=== PATIENT | male | born 2000 | race Hispanic/Latino ===

== ENCOUNTER 2021-09-16 00:22 | Emergency (ER) | payer SELFPAY ==
[~2021-09-16] VITALS: Ht 175.3 cm; Wt 104.3 kg
[2021-09-16 01:33] VITALS: BP 150/99
[2021-09-16] MEDS ORDERED: DICL35CA3 PO (01:51)
[2021-09-16] MEDS ORDERED: CYCL10TA16 PO (01:51)
[2021-09-16] MEDS ORDERED: KETOROLAC 60 MG VIAL (30MG/ML) IM ONE (02:00)
[2021-09-16] MEDS ORDERED: ORPHENADRINE CITRATE 30 MG/ML ML IM ONE (02:00)
== END 2021-09-16 02:10 | disposition home or self-care (01) ==
LOC: EDH 00:22
DX: R07.89 Other chest pain (principal)
CPT/HCPCS: 93005; 96372 ×2; 99284; J1885; J2360